=== PATIENT | female | born 1995 | race Asian ===

== ENCOUNTER → 2023-07-28 15:19 | Outpatient (CLI) | payer OTHER, SELFPAY ==
[2023-07-28 17:06] LABS: Hematocrit 38.2 % (36-46); Hemoglobin 12.8 g/dL (12.0-16.0)
[2023-07-28 21:58] LABS: GTT (PREG) 1 Hour PP 50gm Dose 131 mg/dL (76-139)
== END ==
LOC: LAB 15:20
PROVIDERS: PCP Student in an Organized Health Care Education/Training Program; Referring Provider Student in an Organized Health Care Education/Training Program; Visit Provider Student in an Organized Health Care Education/Training Program
DX: Z34.03 Encounter for supervision of normal first pregnancy, third trimester (principal)
CPT/HCPCS: 36415; 82950; 85014; 85018; 86900; 86901

== ENCOUNTER → 2023-07-29 07:21 | Outpatient (CLI) | payer OTHER, SELFPAY ==
--- NOTE | 2023-07-29 07:22 | DI.US.S_ITS ---
PROCEDURE: US OB FOLLOW UP INDICATIONS: EFW 8%ile at 20wks; eval growth OUTSIDE/PRIOR DATING DATA: Last menstrual period (LMP): Unknown. LMP-based estimated date of delivery (ROVERTO): 08/31/2023? First dating scan (date and location): 07/29/2023. Estimated date of delivery (ROVERTO) from first dating scan: 09/07/2023. The calculations are made using the ultrasound ROVERTO of 09/07/2023. TECHNIQUE: Real-time scanning was performed of the fetus, with image documentation and biometric measurements. Endovaginal scanning: Not performed COMPARISON: None. FINDINGS: General: A single living intrauterine gestation is present. Presentation: Vertex. Placenta: Placental position is anterior, without previa. Amniotic fluid index: 18.4 cm, normal range is 5-24 cm. Single deepest vertical pocket is 6.2 cm. heart rate: 140 beats per minute. Maternal cervical canal: 3.5 cm long. Normal lower limit is 2.5 cm. biometrics: Biparietal diameter: 8.5 cm, 34 weeks 3 days Head circumference: 31.1 cm, 34 weeks 6 days Abdominal circumference: 29.9 cm, 33 weeks 6 days Femur length: 6.5 cm, 33 weeks 5 days Clinically estimated gestational age: 34 weeks 2 days Composite gestational age from present scan: 34 weeks 2 days Estimated weight and percentile: 2313 g, 34th percentile No gross abnormality identified. Umbilical artery S/D Doppler: 3.0, 3.3, 2.5. Preserved diastolic flow. IMPRESSION: 1. Farr living intrauterine at 34 weeks 2 days based on today's ultrasound. 2. Normal placenta and amniotic fluid. 3. Umbilical artery Doppler is within normal limits. We strive to produce accurate, complete, and clear reports of imaging services. To assist us in improving patient care, this report was composed using standard report templates and voice recognition software. Therefore, it may contain abnormal punctuation, insertions and/or omissions. Occasional wrong-word or sound-alike substitutions may occur. Though we review the report and make efforts to correct it, we do recommend that the report be read carefully in proper context to recognize any text inaccuracies. Dictated by: Juan Diego Centeno M.D. on 07/29/2023 at 10:19 Approved by: Juan Diego Centeno M.D. on 07/29/2023 at 10:25
== END ==
PROVIDERS: PCP Student in an Organized Health Care Education/Training Program; Referring Provider Student in an Organized Health Care Education/Training Program; Visit Provider Student in an Organized Health Care Education/Training Program
DX: O28.3 Abnormal ultrasonic finding on antenatal screening of mother (principal); Z3A.34 34 weeks gestation of pregnancy
CPT/HCPCS: 76815; 76820

== ENCOUNTER → 2023-08-09 15:39 | Outpatient (CLI) | payer OTHER, SELFPAY ==
[2023-08-10 15:25] LABS: Strep Grp B PCR NEG for Grp B Strep
== END ==
PROVIDERS: PCP Student in an Organized Health Care Education/Training Program; Visit Provider Student in an Organized Health Care Education/Training Program
DX: Z34.03 Encounter for supervision of normal first pregnancy, third trimester (principal); Z3A.35 35 weeks gestation of pregnancy
CPT/HCPCS: 87653

== ENCOUNTER 2023-08-14 02:09 | Outpatient (CLI) | payer OTHER, SELFPAY ==
--- NOTE | 2023-08-14 10:41 | PM.OBTRLD ---
Visit Information Visit Information Date of evaluation: 08/14/23 On-call OB Provider: Rama Salmeron Reason for Evaluation: Yes other Comments/Additional reasons for admission: Pt called stating she hadn't felt movement for 24hrs, despite hydrating, resting, and doing kick counts. [facility] Medical History (Updated 08/14/23 @ 10:44 by Rama Salmeron DO) History of pilonidal cyst Right arm fracture (~2000) Surgical History (Updated 07/25/23 @ 09:41 by Tamra Noguera RN) [place] teeth extracted History of cholecystectomy History of appendectomy History of bilateral breast reduction surgery (~2017) History of orthopedic surgery (~2000) Family History (Updated 07/25/23 @ 09:43 by Tamra Noguera RN) Mother Diabetes mellitus Hypertension Anemia Father Hypertension Grandmother Diabetes mellitus Grandfather No problems noted. Grandfather Bone cancer Heart attack Grandmother Hypertension Social History marital status: number of children: 0 household members: spouse lives independently: Yes caregiver/support person: No housing: other (RV) pets and animals: Yes (two medium sized ) education level: master's degree (Graduating in August) occupational status: student current occupational exposures/hazards: No special jules needs: No travel history: recent (extensive domestic travel) seatbelt use: always helmet use: Yes water heater temp set < 120 deg: Yes working smoke detector in home: Yes fire extinguisher in home: Yes carbon monox detector in home: Yes firearms in home: Yes firearms unloaded and locked: Yes do you feel safe at home: Yes Smoking Status: Former smoker (quit w/ positive test) Tobacco: How many years used: 10 second hand exposure: No alcohol intake: former (sober since 2020) substance use type: does not use during the past year weight has: remained stable (prior to ) well-balanced diet: daily or most days daily servings fruits/ve or more times/day caffeine: Yes (0-1 cup coffee in AM) Type(s) of exercise: walking frequency: daily Evaluation Evaluation Baseline heart rate: 125 Variability: Moderate (11-25) monitor accelerations: Present Monitor Decelerations: Absent Contraction Frequency (minutes): 0 Category of Tracing: Reactive Diagnosis, Plan/Disposition Final Diagnosis (1) Decreased movement: Status: Acute Plan/Disposition Plan: Reactive NST noted in the center. Pt given reassurance, and advised to f/u this week as scheduled. OB Disposition: home
== END 2023-08-14 02:53 | disposition home or self-care (01) ==
LOC: OB 08-15 10:37
PROVIDERS: PCP Student in an Organized Health Care Education/Training Program; Referring Provider Student in an Organized Health Care Education/Training Program; Visit Provider Student in an Organized Health Care Education/Training Program
DX: O36.8190 Decreased fetal movements, unspecified trimester, not applicable or unspecified (principal); Z36.9 Encounter for antenatal screening, unspecified
CPT/HCPCS: 59025; G0378; G0379

== ENCOUNTER 2023-08-26 17:10 | Outpatient (CLI) | payer OTHER, SELFPAY | END 2023-08-26 18:15 | disposition home or self-care (01) | LOC: LABOR 17:16 → OB 08-29 09:30 | PROVIDERS: PCP Student in an Organized Health Care Education/Training Program; Referring Provider Obstetrics & Gynecology; Visit Provider Obstetrics & Gynecology | DX: O42.92 Full-term premature rupture of membranes, unspecified as to length of time between rupture and onset of labor (principal); O47.1 False labor at or after 37 completed weeks of gestation; Z3A.38 38 weeks gestation of pregnancy | CPT/HCPCS: 59025; G0378; G0379 ==

== ENCOUNTER 2023-08-28 05:30 | Inpatient (IN) | payer OTHER, SELFPAY ==
[2023-08-28 07:02] VITALS: BP 151/70
[2023-08-28 07:12] LABS: Add Manual Diff / Slide Review NO; Basophils Absolute Auto 100 /uL (0-100); Basophils Percent Auto 0.4 % (0-2); Eosinophils Absolute Auto 100 /uL (0-450); Eosinophils Percent Auto 0.5 % (2-4); Hemoglobin 13.1 g/dL (12.0-16.0); Lymphocytes Absolute Auto 1600 /uL (1100-4500); Mean Corpuscular HGB Conc 33.7 % (30-36); Mean Corpuscular Volume 98.2 fL (80-100); Monocytes Absolute Auto 1100 /uL (0-900); Monocytes Percent Auto 8.3 % (3-14); Neutrophils Absolute Auto 10400 /uL (1500-7000); Neutrophils Percent Auto 78.8 % (50-75); Platelet Count 150 X10^3/uL (150-400); Red Blood Cell Count 3.97 X10^6/uL (4.0-5.2); Red Cell Distribution Width 13.8 % (11.6-14.8); White Blood Cell Count 13.2 X10^3/uL (4.5-11.0)
[2023-08-28] MEDS: LACTATED RINGERS 1,000 ML 100 ML IV ×2 (07:16→12:53)
[2023-08-28] MEDS: CEFAZOLIN 2 GM/100 ML PREMIX 100 ML IV (07:16)
[2023-08-28 07:18] LABS: Alanine Aminotransferase 12 IU/L (<35); Albumin 3.6 g/dL (3.5-5.0); Albumin Globulin Ratio 1.3 (1.0-2.8); Alkaline Phosphatase 110 U/L (38-126); Aspartate Aminotransferase 18 IU/L (14-36); BUN Creatinine Ratio 14.7 (6-22); Bilirubin Total 0.4 mg/dL (0.2-1.3); Blood Urea Nitrogen 5 mg/dL (7-17); Calcium 9.5 mg/dL (8.4-10.2); Carbon Dioxide 22 mmol/L (22-32); Chloride 107 mmol/L (98-107); Estimated Glomerular Filt Rate > 60 mL/min (>60); Globulin 2.8 g/dL (1.7-4.1); Glucose 81 mg/dL (70-100); HEMOLYSIS < 15 (0-50); Potassium 3.1 mmol/L (3.4-5.1); Sodium 136 mmol/L (137-145); Total Protein 6.4 g/dL (6.3-8.2)
--- NOTE | 2023-08-28 10:16 | PM.AN.REGBLK ---
Regional Block Pre-procedure PMH/ROS narrative: 28 yo 38 weeks GA in term labor requesting epidural for analgesia PSH/Anesthesia history narrative: See chart for details Anxiety o/w healthy ASA Class: II Labs: Hct 39.0 % (36-46) 08/28/23 06:40 Plt Count 150 X10^3/uL (150-400) 08/28/23 06:40 Medications: Current Medications Generic Name Dose Route Start Last Admin Trade Name Freq PRN Reason Stop Dose Admin Calcium Carbonate 1,000 mg 08/28/23 06:25 Calcium Carbonate 500 Mg Tab PO Q4HR PRN Dyspepsia Carboprost Tromethamine 250 mcg 08/28/23 06:24 Carboprost 250 Mcg/Ml Ampul IM Q90M PRN Bleeding Diphenhydramine HCl 25 mg 08/28/23 10:10 Diphenhydramine 50 Mg/Ml Vial IV Q10M PRN Pruritis Ephedrine Sulfate 5 mg 08/28/23 10:10 Ephedrine 50 Mg/Ml Vial IV Q5M PRN Blood pressure decrease more than 20% of baseline. Fentanyl 50 mcg 08/28/23 06:25 Fentanyl 100 Mcg/2 Ml Inj IV Q1H PRN Pain, Moderate (4-6) Lactated Ringer's 1,000 mls @ 100 mls/hr 08/28/23 06:30 08/28/23 07:16 Lactated Ringers IV 100 mls/hr CONT APARNA Administration Oxytocin/Lactated Ringer's 30 unit in 500 mls @ 200 mls/hr 08/28/23 06:24 Oxytocin Premix IV CONT PRN Bleeding Protocol Tranexamic Acid 1,000 mg/ 100 mls @ 200 mls/hr 08/28/23 06:24 Sodium Chloride IV NOW PRN Bleeding Cefazolin Sodium 1 gm/ Sodium 100 mls @ 200 mls/hr 08/28/23 14:45 Chloride IV Q8H APARNA Sodium Chloride 1,000 mls @ 100 mls/hr 08/28/23 10:00 Normal Saline 0.9% IV 08/29/23 09:57 CONT APARNA Sodium Chloride 1,000 mls @ 100 mls/hr 08/28/23 10:15 Normal Saline 0.9% IV 08/29/23 10:10 CONT APARNA FENT 2MCG/ML BUPIV 0.125% EPI 200 mcg in 100 mls @ 6 mls/hr 08/28/23 10:15 Fentanyl/Bupiv/Ns 2mcg/Ml - 0.125% EPIDURAL CONT APARNA Lidocaine HCl 20 ml 08/28/23 06:24 Lidocaine 1% 20 Ml INJ INTRA-OP PRN Post Delivery Methylergonovine Maleate 0.2 mg 08/28/23 06:24 Methylergonovine 0.2 Mg Tablet PO Q6HR PRN Heavy Bleeding Methylergonovine Maleate 0.2 mg 08/28/23 06:24 Methylergonovine 0.2 Mg/Ml Vial IM NOW PRN Bleeding Misoprostol 800 mcg 08/28/23 06:24 Misoprostol [address] NOW PRN Bleeding Misoprostol 400 mcg 08/28/23 06:24 Misoprostol 200 Mcg Tablet SL NOW PRN Bleeding Nalbuphine HCl 5 mg 08/28/23 09:56 Nalbuphine 20 Mg/Ml Ampul IV Q6H PRN Pruritus Nalbuphine HCl 5 mg 08/28/23 10:08 Nalbuphine 20 Mg/Ml Ampul IV Q6H PRN Pruritus Nalbuphine HCl 2.5 mg 08/28/23 10:10 Nalbuphine 20 Mg/Ml Ampul IV Q10M PRN Pruritis Naloxone HCl 0.2 mg 08/28/23 06:24 Naloxone 0.4 Mg/Ml Vial IV Q2MIN PRN Opiate Reversal Naloxone HCl 0.4 mg 08/28/23 09:56 Naloxone 0.4 Mg/Ml Vial IV Q2MIN PRN Opiate Reversal Naloxone HCl 0.1 mg 08/28/23 09:56 Naloxone 0.4 Mg/Ml Vial IV 08/28/23 09:57 NOW ONE Naloxone HCl 0.4 mg 08/28/23 10:08 Naloxone 0.4 Mg/Ml Vial IV Q2MIN PRN Opiate Reversal Naloxone HCl 0.1 mg 08/28/23 10:08 Naloxone 0.4 Mg/Ml Vial IV 08/28/23 10:09 NOW ONE Ondansetron HCl 4 mg 08/28/23 06:25 Ondansetron 4 Mg/2 Ml Inj IV Q4HR PRN Nausea And Vomiting Ondansetron HCl 4 mg 08/28/23 13:00 Ondansetron 4 Mg/2 Ml Inj IV 08/28/23 17:01 Q4HR APARNA Oxytocin 10 unit 08/28/23 06:24 Oxytocin 10 Unit/Ml Vial IM NOW PRN Bleeding Sodium Chloride 10 ml 08/28/23 09:00 Sodium Chloride 0.9% Flush IV BID APARNA Sodium Chloride 10 ml 08/28/23 06:24 Sodium Chloride 0.9% Flush IV PRN PRN Flush Sodium Chloride 10 ml 08/28/23 10:15 Sodium Chloride 0.9% Flush IV BID APARNA Sodium Chloride 10 ml 08/28/23 10:10 Sodium Chloride 0.9% Flush IV PRN PRN Flush Allergies: Allergies Allergy/AdvReac Type Severity Reaction Status Date / Time amoxicillin Allergy Mild Rash Verified 08/23/23 10:22 Procedure Insertion date: 08/28/23 Insertion time: 08:00 Prep/Local: 1% lidocaine (chloroprep) Interspace: L3-4 Needle: 18 gauge Gertrude Loss of resistance with: saline ERICK at (cm): 6 Catheter placed at SKIN (cm): 12 Catheter in SPACE (cm): 6 Insertion: No CSF, No Blood, No Paresthesia with insertion, No Paresthesia with injection and No Test dose reaction Initial Medications TEST DOSE time: 08:02 BOLUS DOSE time: 08:05 BOLUS DOSE (mL): 10 BOLUS DOSE med: 0.125% bupivacaine with fentanyl 10 mcg/mL Infusion Initial rate (mL/hr): 10 Subsequent interventions: 1999 Pt pushing, c/o 10/10 pain. Epidural running 10 ml/hr, BP 134/96. Bolused with 10 ml through pump, rate increased to 12 ml/hr 2019 went to give lido bolus, found epidural disconnected from pump tubing. Wiped with ancohol, reconnected. 10 ml lido 2% w/epi given with good relief. Vacuum extraction with delivery 2035 Post-procedure Anesthesia date START: 08/28/23 Anesthesia time START: 07:55 Anesthesia date END: 08/28/23 Anesthesia time END: 20:36 Post-procedure Anesthesia Assessment: Yes CV function: HR/BP stable, Yes Resp function: RR/sat/airway adequate, Yes Post-op hydration adequate, Yes Pain control adequate, Yes Nausea & vomiting absent, Yes Temperature > 36 C, Yes Mental status appropriate and Yes Anesthesia complications
--- NOTE | 2023-08-28 10:51 | P.HPOB_ITS ---
OB HPI Date/Time Date of admission: 08/28/23 Date Patient Seen: 08/28/23 Time Patient Seen: 10:51 History of Present Condition Chief complaint: IUP, 38+4 wks, SROM, GBS +, PCN Allergic (Rash) : 1 Para: 0 Estimated Date of Delivery: 09/07/23 Estimated Gestational Age (weeks): 38+4 Narrative: Krystyna Borrego is a 27 year old primigravida admitted now at 38+ 4 weeks gestational age following spontaneous rupture membranes earlier this morning demonstrating clear fluid. She has started having prodrome of labor and is in early labor at time of admission. course has been largely uneventful with solid early dating and appropriate milestones throughout. Patient is GBS positive but she is allergic to both penicillin which manifests as a rash and clindamycin. History of Present care: good care Dating criteria: LMP confirmed by 1st trimester US Ultrasounds: normal 1st trimester US and normal mid trimester US Obstetrical complications: other (GBS positive) Preadmission Labs Blood type: O (+) positive -: Antibody screen: negative, GBS status: positive, HBsAG: negative, HIV: negative and RPR/VDLR: negative -: Chlamydia screen: not detected and Gonorrhea screen: not detected -: Rubella: immune and Varicella: immune HCT: 39.0 (Platelets 150k) HCAB: negative PAP: Normal Sequential screen: Negative Quad screen: Normal (AFP testing negative) 1 hr GTT: 131 Prior (ies) History: Primigravida Evaluation Evaluation Baseline heart rate: 15 Variability: Moderate (11-25) monitor accelerations: Present Monitor Decelerations: Absent Uterine Contraction Intensity: Moderate Category of Tracing: Reactive Status: Category l Dilation (cm): 4 Effacement (%): 90 Dilation: 3-4 cm Effacement: >/=80% station: -1 Position of cervix: mid Consistency: soft Mccullough score: 10 Non-invasive Membranes Rupture Test: positive [facility] Medical History (Updated 08/28/23 @ 16:47 by Madelaine Bejarano) History of pilonidal cyst Right arm fracture (~2000) Surgical History (Updated 08/28/23 @ 16:47 by Madelaine Bejarano) Anesthesia [place] teeth extracted History of cholecystectomy History of appendectomy History of bilateral breast reduction surgery (~2017) History of orthopedic surgery (~2000) Family History (Updated 08/28/23 @ 16:48 by Madelaine Bejarano) Mother Diabetes mellitus Hypertension Anemia Father Hypertension Grandmother Diabetes mellitus Grandfather No problems noted. Grandfather Bone cancer Heart attack Grandmother Hypertension Mental health problem Social History marital status: number of children: 0 household members: spouse lives independently: Yes caregiver/support person: No housing: other (RV) pets and animals: Yes (two medium sized ) education level: master's degree (Graduating in August) occupational status: student current occupational exposures/hazards: No special jules needs: No travel history: recent (extensive domestic travel) seatbelt use: always helmet use: Yes water heater temp set < 120 deg: Yes working smoke detector in home: Yes fire extinguisher in home: Yes carbon monox detector in home: Yes firearms in home: Yes firearms unloaded and locked: Yes do you feel safe at home: Yes Smoking Status: Former smoker Tobacco: How many years used: 10 second hand exposure: No alcohol intake: former (sober since 2020) substance use type: does not use during the past year weight has: remained stable (prior to ) well-balanced diet: daily or most days daily servings fruits/ve or more times/day caffeine: Yes (0-1 cup coffee in AM) Type(s) of exercise: walking frequency: daily Meds Home Medications and Allergies Home Medications Medication Instructions Recorded Confirmed Type ferrous sulfate 325 mg (65 mg 325 mg PO DAILY 07/25/23 08/28/23 History iron) tablet (Feosol) pyridoxine (vitamin B6) 50 mg 50 mg PO DAILY 07/25/23 08/28/23 History tablet vit no.95-ferrous 1 tab PO DAILY #90 tabs 08/19/23 08/28/23 Rx fumarate 28 mg-folic acid 800 mcg tablet ( Multivitamins) sertraline 200 mg capsule 200 mg PO DAILY #60 caps 08/19/23 08/28/23 Rx Allergies Allergy/AdvReac Type Severity Reaction Status Date / Time amoxicillin Allergy Mild Rash Verified 08/23/23 10:22 Review of Systems Review of Systems Narrative: Problem-specific ROS positives included in HPI OB Exam Vital signs Blood Pressure: 130/63 Pulse Rate: 78 Temperature: 97.9 F HENMT Head: normal to inspection, normocephalic and atraumatic Eyes General: appearance normal, both eyes and all related structures Resp Effort & Inspection: normal respiratory effort and able to speak in complete sentences Auscultation: clear to auscultation bilaterally Cardio Rate: regular rate Rhythm: regular rhythm Heart Sounds: S1 normal, S2 normal and no murmurs Extremities Lower extremity: Yes normal to inspection GI Inspection: normal to inspection Palpation: Yes soft and Yes no hepatosplenomegaly Uterus Location (Fundal Height): 36 Estimated Weight (lbs): 7 Amniotic Fluid: clear Objective Labs 08/28/23 06:40 08/28/23 06:40 Labs: Laboratory Results - last 24 hr 08/28/23 06:40 WBC 13.2 H RBC 3.97 L Hgb 13.1 Hct 39.0 MCV 98.2 MCH 33.0 MCHC 33.7 RDW 13.8 Plt Count 150 Neut % (Auto) 78.8 H Lymph % (Auto) 12.0 L [place] % (Auto) 8.3 Eos % (Auto) 0.5 L Baso % (Auto) 0.4 Neut # (Auto) 80101 H Lymph # (Auto) 1600 [place] # (Auto) 1100 H Eos # (Auto) 100 Baso # (Auto) 100 Sodium 136 L Potassium 3.1 L Chloride 107 Carbon Dioxide 22 BUN 5 L Creatinine 0.34 L Estimated GFR > 60 BUN/Creatinine Ratio 14.7 Glucose 81 Calcium 9.5 Total Bilirubin 0.4 AST 18 ALT 12 Alkaline Phosphatase 110 Total Protein 6.4 Albumin 3.6 Globulin 2.8 Albumin/Globulin Ratio 1.3 Blood Type O Positive Antibody Screen Negative Assessment and Plan Assessment and Plan Assessment and Plan narrative: ASSESSMENT 1. Intrauterine , 38+ 4 weeks gestational age 2. SROM, clear fluid 3. Latent phase labor 4. GBS negative status PLAN 1. Admit for labor and delivery 2. See admission orders Time Spent with Patient Total time spent with greater than 50% in coordination of care (as documented) at patient's floor/unit and/or counseling patient:: less than 15 minutes
[2023-08-28 11:00] VITALS: BP 130/63; PULSE 78; TEMP 36.6
[2023-08-28] MEDS: OXYTOCIN PREMIX 30 UNIT/500 ML PLAST..BAG IV (12:52)
[2023-08-28] MEDS: diphenhydrAMINE 50 MG/ML VIAL 25 MG IV ×2 (12:52→13:31)
[2023-08-28] MEDS: FENT 2MCG/ML BUPIV 0.125% EPI 200 MCG/100 ML PLAST..BAG 6 MCG EPIDURAL (14:11)
[2023-08-28] MEDS: CEFAZOLIN VIAL 1 GM in SODIUM CHLORIDE 0.9% 100 ML IV (14:46)
--- NOTE | 2023-08-28 17:07 | PM.OBPNLAB ---
Date/Time Date Patient Seen: 08/28/23 Time Patient Seen: 17:08 Pain Control Pain control: tolerating well Pelvic Exam Dilation (cm): 1 Effacement (%): 100 station: +1 Amniotic membrane status: Ruptured Contractions Contractions on admission: irregular Monitor mode: External Pitocin rate (mU/min): 8 Contraction frequency (min): 3 Contraction duration (min): 1 Contraction pattern: Regular Contraction phase: Resting Contraction intensity: Strong/Firm Status status: Category l Heart Rate Baseline: 130 Monitor Accelerations: Present Monitor Decelerations: Early Monitor Variability: Moderate Assessment and Plan Assessment: active labor Plan: continuous present management Comments: Patient pushing reasonably well; CINDY vs. LOP. Anticipate .
[2023-08-28 20:09] LABS: Creatinine Urine Random 20.7 mg/dL; Protein (Total) Urine Random 22 mg/dL (0-12); Protein Creatinine Ratio Urine 1.06 GRAM/24H
--- NOTE | 2023-08-28 21:10 | PM.OBPRVD ---
Events: Other (GBS positive status) Labor & Delivery Delivery date: 08/28/23 Intrapartal Events: Prolonged 2nd Stage > 2.5 hours Cervical ripening method: none Induction method: none Delivery augmentation: pitocin Delivery monitor: external FHT and external uterine Route of delivery: and vacuum extraction Indication for instrumentation: maternal exhaustion Episiotomy description: None L&D Laceration Description: Vaginal - 1st Degree Delivery repair: chromic Estimated blood loss (mL): 200 Quantitative Blood Loss: 200 Anesthesia Type: Epidural Complications: None Narrative: Following a 4 hour, 9 minute 2nd stage complicated by disconnection of the epidural catheter resulting in severe maternal pain with her contractions, the decision was made for vacuum extraction due to extreme maternal exhaustion. Xtreme Power Omni cup vacuum extractor placed at +2 station with the infant in the CLARISSE position. The vertex was brought down to with 3 pulls, no pop offs, and vacuum pressure never exceeding 500 mm of mercury. Patient then pushed the vertex over the intact perineum with a single push. Nuchal cord was reduced after delivery of the and no shoulder dystocia was encountered. Skin to skin contact initiated immediately and delayed cord clamping performed. Once the umbilical cord was doubly clamped and cut, a cord blood sample was obtained for routine studies. The placenta was then delivered with gentle cord traction and suprapubic countertraction. Intravenous Pitocin was initiated immediately with prompt decrease in vaginal bleeding. Placenta was inspected and found to be intact with a three-vessel cord. Inspection of the perineum showed a superficial vaginal laceration in the midline just inside the hymeneal ring. Because of bleeding from the small laceration, 2-0 chromic using running interlocking stitch was used to render the laceration hemostatic. Sponge, instrument, and needle count was correct at the completion of the delivery process which was well tolerated by both mother and baby. Baby 1: gender: Female Presentation: vertex Position: Left Occiput Anterior Placenta delivery description: Spontaneous Cord Vessel Description: 3 Vessels and Nuchal Cord (X1, loose) score (1 min): 6 score (5 min): 8 weight: 6 lb 6.647 oz Plan for aftercare: Routine care
[2023-08-28] MEDS: ACETAMINOPHEN 325 MG TABLET 650 MG PO (23:20)
[2023-08-28] MEDS: IBUPROFEN 600 MG TABLET PO (23:20)
[2023-08-28] MEDS: LANOLIN OINT 7 GM 1 APPLIC TOP (23:21)
[2023-08-29] MEDS: ACETAMINOPHEN 325 MG TABLET 650 MG PO ×3 (05:13→17:29)
[2023-08-29] MEDS: IBUPROFEN 600 MG TABLET PO ×3 (05:13→17:29)
[2023-08-29 06:14] LABS: Add Manual Diff / Slide Review NO; Basophils Absolute Auto 100 /uL (0-100); Basophils Percent Auto 0.6 % (0-2); Eosinophils Absolute Auto 100 /uL (0-450); Eosinophils Percent Auto 0.4 % (2-4); Hematocrit 33.1 % (36-46); Hemoglobin 11.2 g/dL (12.0-16.0); Lymphocytes Absolute Auto 1600 /uL (1100-4500); Lymphocytes Percent Auto 9.4 % (25-40); Mean Corpuscular Hemoglobin 33.3 PG (26-34); Mean Corpuscular Volume 98.1 fL (80-100); Monocytes Absolute Auto 1400 /uL (0-900); Monocytes Percent Auto 8.3 % (3-14); Neutrophils Absolute Auto 13900 /uL (1500-7000); Neutrophils Percent Auto 81.3 % (50-75); Platelet Count 133 X10^3/uL (150-400); Red Blood Cell Count 3.38 X10^6/uL (4.0-5.2); Red Cell Distribution Width 13.6 % (11.6-14.8); White Blood Cell Count 17.2 X10^3/uL (4.5-11.0)
--- NOTE | 2023-08-29 10:00 | PM.OBPN.1 ---
Subjective - OB Subjective Patient comments: no complaints and pain well controlled Monon baby status: doing well Monon feeding status: exclusively breast feeding Narrative: Pt resting, easily awakened Date Patient Seen: 08/29/23 Time Patient Seen: 09:15 Interval history: PPD1 Exam Vital Signs (past 8 hours): BP 122/82 HR 67 RR 16 Tc 97.4 SpO2 96% RA Narrative Exam Narrative: Sleeping, easily awakened Const General: cooperative and healthy appearing Nutritional Appearance: average body habitus HENMT Head: normal to inspection Mouth: moist mucous membranes Chest Chest: normal inspection of the chest Resp Effort & Inspection: normal respiratory effort Cardio Other: scant bilateral pedal edema GI Other: fundus firm << Umb Other: exam deferred Skin General: no rashes or lesions noted Extrem General: normal to inspection Psych Appearance: grossly normal Objective Labs 08/29/23 06:05 08/28/23 06:40 Labs: Laboratory Results - last 24 hr 08/28/23 08/29/23 13:38 06:05 WBC 17.2 H RBC 3.38 L Hgb 11.2 L Hct 33.1 L MCV 98.1 MCH 33.3 MCHC 34.0 RDW 13.6 Plt Count 133 L Neut % (Auto) 81.3 H Lymph % (Auto) 9.4 L [place] % (Auto) 8.3 Eos % (Auto) 0.4 L Baso % (Auto) 0.6 Neut # (Auto) 56062 H Lymph # (Auto) 1600 [place] # (Auto) 1400 H Eos # (Auto) 100 Baso # (Auto) 100 U Random Total Protein 22 H Urine Creatinine 20.7 Protein/Creatinin Ratio 1.06 Assessment & Plan Plan day: 1 plan OB: routine care Comments: 27yo PPD1 s/p VAVD (maternal exhaustion in second stage); doing well fully advanced routine care exclusively, consult PRN PNL as per admission labs, rubella immune, no indication for rhogam GBS+, adequate intrapartum treatment with cefazolin (pt allergic to PCN and Clinda). Noted moderative reactive leukocytosis with AM labs (13k on admission, increasing to 17k this AM). Continue routine maternal assessment as per protocol, pt afebrile without fundal tenderness or concern for occult source of infection at this time h/o maternal mood disorder continue home sertraline high risk PPD, plan on 1-2wk telehealth mood check per discharging provider's preference Dispo: pending clinical course, anticipate dc to home PPD2 Time Spent With Patient Time: Total time spent is greater than 50% in coordination of care (as documented) at patient's floor/unit and/or counseling patient: Time with patient: 15-24 minutes
[2023-08-29] MEDS: DOCUSATE 100 MG CAPSULE PO (11:44)
[2023-08-29] MEDS: SERTRALINE 50 MG TABLET 200 MG PO (11:44)
[2023-08-30] MEDS: ACETAMINOPHEN 325 MG TABLET 650 MG PO ×3 (00:07→14:08)
[2023-08-30] MEDS: IBUPROFEN 600 MG TABLET PO ×3 (00:07→14:09)
--- NOTE | 2023-08-30 07:32 | P.DS_ITS ---
Discharge Providers Provider Date of admission: 08/28/23 05:30 Discharge Date: 08/30/23 Primary care physician: Zuleika Munson MD Consults: 08/28/23 06:24 Consult to Anesthesiology Urgent Comment: Consulting Provider: Shiva Law Reason for consultation: Epidural Has provider been notified: No 08/29/23 21:04 Consult to Coding Compliance Auditor Routine Comment: Discharge provider: Shiva Law MD Summary Hospital Course Date Patient Seen: 08/30/23 Time Patient Seen: 07:34 Diagnoses: Intrauterine gestation, 38+ 3 weeks, delivered by spontaneous vaginal GBS positive status Hospital Course: Krystyna was admitted on the morning of 08/28/2023 after experiencing spontaneous rupture of membranes earlier that day. Patient had epidural placed on the morning of 08/28/2023 and was augmented in labor with Pitocin. On the evening of 08/28/2023 she delivered spontaneously a viable female with Apgars of 6/8, and a weight of 2910 g ( 6 lb 6.6 oz). Following delivery both mother and baby have done extremely well with the mother experiencing prompt return of bowel and bladder function, she is ambulating independently, tolerating regular diet, and her pain is well controlled with oral pain medications. She will be discharged this time in an afebrile normotensive condition after counseling regarding precautionary symptoms, limitations of activity, medications, and plans for follow-up which will be in 6 weeks. Medications at the time of discharge will include resumption of all pre delivery medications as well as ibuprofen 600 mg p.o. q.6 hours as needed for pain, dispense 30 with 2 refills, and oxycodone 5 mg every 6 hours as needed for pain, dispensed 6 with no refills. Peripartum Data Infant Delivery Method: Natural Vaginal Laceration Description: Vaginal - 1st Degree Episiotomy description: None Procedures: Continuous lumbar epidural Spontaneous vaginal delivery with repair of first-degree vaginal laceration complications: none 1: Gender: Female Disposition of : home Status at Discharge Cognitive/behavioral status at discharge: oriented Functional status at discharge: independent ambulation Overall status at discharge: patient is back to baseline Time Spent with Patient Time attestation: Total time spent providing and/or coordinating discharge services: Time spent: Less than 30 minutes Objective Labs 08/29/23 06:05 04/28/24 06:40 Exam Const General: cooperative and comfortable Nutritional Appearance: average body habitus Orientation: alert and oriented x3 HENMT Head: normal to inspection, atraumatic and abrasion Ears: hearing grossly normal bilaterally Face and sinus: face symmetric Eyes General: appearance normal, both eyes and all related structures Conjunctivae: conjunctivae normal Sclera: sclerae normal EOM: EOM intact bilaterally Neck Neck: normal visual inspection Resp Effort & Inspection: normal respiratory effort and able to speak in complete sentences GI Inspection: normal to inspection Palpation: soft and no hepatosplenomegaly External Female Exam: other (No significant bleeding noted) Uterus Location (Fundal Height): 18 Extrem General: no calf tenderness Psych Appearance: grossly normal Mental Status: mental status grossly normal Speech and Movement: speech and movement normal Mood: congruent mood Affect: normal affect Attitude: cooperative Thought Process: normal Thought Content: normal Judgment: judgment good Discharge Plan Discharge Plan Patient Disposition: Home Provider Discharge Comment: Please review the written instructions you received when you were discharged from the hospital. Your follow-up appointment will be scheduled for 6 weeks after your delivery and we look forward to seeing you then. If however in the meanwhile you have any issues, concerns, or questions, please contact our office either by phone at [phone], or via the patient portal. Discharge orders & Medications Prescriptions: New ibuprofen 600 mg Tablet 600 mg PO Q6HR PRN (Reason: Pain, Mild (1-3)) Qty: 30 2RF oxycodone 5 mg Tablet 5 mg PO Q6H PRN (Reason: Pain, Moderate (4-6)) Qty: 6 0RF Continued PNV cmb#95-ferrous fumarate-FA [ Multivitamins] 28 mg iron- 800 mcg tablet 1 tab PO DAILY Qty: 90 0RF sertraline 200 mg capsule 200 mg PO DAILY Qty: 60 1RF pyridoxine (vitamin B6) 50 mg tablet 50 mg PO DAILY ferrous sulfate [Feosol] 325 mg (65 mg iron) tablet 325 mg PO DAILY Follow up/Referrals: Zuleika Munson MD [Primary Care Provider] - Rama Salmeron DO [Physician] - (Tele Health with Dr. Salmeron on 09/20/2023 @ 1630 appointment on at 11:00 AM 6 week post appt on 10/10/2023 @ 1000am) Shiva Law MD [Physician] - Discharge Health Status Multidrug resistant organism: No MDRO Diet/Activity/Treatments Diet: Diet as Tolerated Activity: As tolerated Other treatments: [id number] Tylenol and/or ibuprofen may be used additional pain relief. Jetn-owl-cihbpve stool softeners and/or MiraLax may be as needed constipation Skin/Wound/Dressing Care Report to your healthcare provider any signs of infection, such as:: chills, fever, increased pain, unusual drainage and unusual redness Dressing: N/A Visit Report/Discharge Packet Instructions: DI for Labor and Delivery, Vaginal , DI for and Nipple Soreness Discharge Data Primary Care Provider: Zuleika Munson
[2023-08-30] MEDS: SERTRALINE 50 MG TABLET 200 MG PO (08:12)
[2023-08-30] MEDS: DOCUSATE 100 MG CAPSULE PO (08:12)
[2023-08-30 09:48] VITALS: BP 135/86; PULSE 101; RESP 17; TEMP 36.6
== END 2023-08-30 14:45 | disposition home or self-care (01) | DRG 807 ==
PROVIDERS: Admitting Provider Obstetrics & Gynecology; PCP Student in an Organized Health Care Education/Training Program; Referring Provider Obstetrics & Gynecology; Visit Provider Obstetrics & Gynecology
DX: O99.824 Streptococcus B carrier state complicating childbirth (principal); Z37.0 Single live birth; O63.1 Prolonged second stage (of labor); O70.0 First degree perineal laceration during delivery; O75.81 Maternal exhaustion complicating labor and delivery; Z3A.38 38 weeks gestation of pregnancy; O14.90 Unspecified pre-eclampsia, unspecified trimester
CPT/HCPCS: 36415; 59050; 59410; 80053; 82570; 83615; 84112; 84156; 84550; 85025; 86850; 86900; 86901; G0379; J0690; J1200; J2590

== ENCOUNTER → 2023-09-02 11:50 | Outpatient (CLI) | payer OTHER, SELFPAY ==
[2023-09-02 13:00] LABS: Add Manual Diff / Slide Review NO; Basophils Absolute Auto 0 /uL (0-100); Basophils Percent Auto 0.3 % (0-2); Eosinophils Absolute Auto 300 /uL (0-450); Eosinophils Percent Auto 2.5 % (2-4); Hematocrit 35.7 % (36-46); Hemoglobin 12.2 g/dL (12.0-16.0); Lymphocytes Absolute Auto 1300 /uL (1100-4500); Lymphocytes Percent Auto 11.1 % (25-40); Mean Corpuscular HGB Conc 34.2 % (30-36); Mean Corpuscular Hemoglobin 33.2 PG (26-34); Mean Corpuscular Volume 96.9 fL (80-100); Monocytes Absolute Auto 700 /uL (0-900); Monocytes Percent Auto 5.5 % (3-14); Neutrophils Absolute Auto 9500 /uL (1500-7000); Neutrophils Percent Auto 80.6 % (50-75); Platelet Count 195 X10^3/uL (150-400); Red Blood Cell Count 3.68 X10^6/uL (4.0-5.2); Red Cell Distribution Width 13.5 % (11.6-14.8); White Blood Cell Count 11.8 X10^3/uL (4.5-11.0)
[2023-09-02 13:18] LABS: Alanine Aminotransferase 59 IU/L (<35); Albumin 3.8 g/dL (3.5-5.0); Albumin Globulin Ratio 1.4 (1.0-2.8); Alkaline Phosphatase 132 U/L (38-126); Aspartate Aminotransferase 53 IU/L (14-36); BUN Creatinine Ratio 21.4 (6-22); Bilirubin Total 0.6 mg/dL (0.2-1.3); Blood Urea Nitrogen 9 mg/dL (7-17); Calcium 9.4 mg/dL (8.4-10.2); Carbon Dioxide 30 mmol/L (22-32); Chloride 106 mmol/L (98-107); Estimated Glomerular Filt Rate > 60 mL/min (>60); Globulin 2.8 g/dL (1.7-4.1); Glucose 79 mg/dL (70-100); HEMOLYSIS < 15 (0-50); Lactate Dehydrogenase 405 U/L (120-246); Potassium 3.5 mmol/L (3.4-5.1); Sodium 137 mmol/L (137-145); Total Protein 6.6 g/dL (6.3-8.2); Uric Acid 4.8 mg/dL (2.5-6.2)
[2023-09-02 15:08] LABS: Creatinine Urine Random 30.1 mg/dL; Protein (Total) Urine Random 18 mg/dL (0-12); Protein Creatinine Ratio Urine 0.59 GRAM/24H
== END ==
PROVIDERS: PCP Student in an Organized Health Care Education/Training Program; Referring Provider Family Medicine; Visit Provider Family Medicine
DX: O14.90 Unspecified pre-eclampsia, unspecified trimester (principal)
CPT/HCPCS: 36415; 80053; 82570; 83615; 84156; 84550; 85025

== ENCOUNTER 2023-09-02 18:53 | Inpatient (IN) | payer OTHER, SELFPAY ==
[2023-09-02] VITALS (16 sets, daily range): BP systolic 136–180; BP diastolic 68–111; PULSE 65–76; RESP 26–35; O2SAT 93–97; BMI 30.8
--- NOTE | 2023-09-02 21:54 | PM.HP.1 ---
History of Present Illness History of Present Illness Date Patient Seen: 09/02/23 Time Patient Seen: 21:00 Date of Onset of Symptoms: 09/01/23 Chief complaint: Post Eclampsia Narrative: 27yo PPD5 s/p of LBFI, direct inpatient admission for pre-eclampsia with severe features. Pt had presented earlier this afternoon to outpatient clinic with Dr. Rubin, endorsed at that time MALONE inadequately relieved with tylenol as well as marked increase in BLE edema. BP in office mild range, pt sent to lab for PIH assessment however results did not return until patient had already departed facility. Labs returned significant for elevated LFTs (AST 53, ALT 59), borderline abnormal P/Cr (0.59), remainder wnl. Patient was called by her primary OB (Dr. Salmeron) and instructed to return to facility for direct admission. Center at our facility at capacity and thus planned direct admission to inpatient medicine floor, ICU level of care secondary to IV magnesium gtt. Patient did not present to facility until later this evening (approximately 2100). Patient and spouse met in room, at bedside. Patient noted to be tearful but appropriate. States MALONE is present, generalized without occipital localization. No visual changes or RUQ pain. +3 pitting edema noted to level of knees bilaterally. Initial BP severe range (160s/90s). Patient additional c/o severe L breast engorgement (reason for outpatient visit with earlier today), has been massaging and hand-expressing but recently discovered she was using incorrect size of phlange and has not been able to purchase correct (smaller) size. Denies fever, no erythema of area but very tense and uncomfortable. Lochia minimal, has been taking ibuprofen 600mg scheduled for cramping with adequate relief. Note antepartum course was complicated by inadequate analgesia, high risk depression/ trauma. [facility] Medical History (Updated 09/02/23 @ 22:25 by Luna He MD) Pre-eclampsia, History of pilonidal cyst Right arm fracture (~2000) Surgical History (Updated 08/28/23 @ 16:47 by Madelaine Bejarano) Anesthesia [place] teeth extracted History of cholecystectomy History of appendectomy History of bilateral breast reduction surgery (~2017) History of orthopedic surgery (~2000) Family History (Updated 08/28/23 @ 16:48 by Madelaine Bejarano) Mother Diabetes mellitus Hypertension Anemia Father Hypertension Grandmother Diabetes mellitus Grandfather No problems noted. Grandfather Bone cancer Heart attack Grandmother Hypertension Mental health problem Social History marital status: number of children: 0 household members: spouse lives independently: Yes caregiver/support person: No housing: other (RV) pets and animals: Yes (two medium sized ) education level: master's degree (Graduating in August) occupational status: student current occupational exposures/hazards: No special jules needs: No travel history: recent (extensive domestic travel) seatbelt use: always helmet use: Yes water heater temp set < 120 deg: Yes working smoke detector in home: Yes fire extinguisher in home: Yes carbon monox detector in home: Yes firearms in home: Yes firearms unloaded and locked: Yes do you feel safe at home: Yes Smoking Status: Former smoker Tobacco: How many years used: 10 second hand exposure: No alcohol intake: former substance use type: does not use during the past year weight has: remained stable (prior to ) well-balanced diet: daily or most days daily servings fruits/ve or more times/day caffeine: Yes (0-1 cup coffee in AM) Type(s) of exercise: walking frequency: daily Meds Home Medications and Allergies Home Medications Medication Instructions Recorded Confirmed Type ferrous sulfate 325 mg (65 mg 325 mg PO DAILY 07/25/23 09/02/23 History iron) tablet (Feosol) vit no.95-ferrous 1 tab PO DAILY #90 tabs 08/19/23 09/02/23 Rx fumarate 28 mg-folic acid 800 mcg tablet ( Multivitamins) sertraline 200 mg capsule 200 mg PO DAILY #60 caps 08/19/23 09/02/23 Rx ibuprofen 600 mg tablet 600 mg PO Q6HR PRN Pain, Mild 08/30/23 09/02/23 Rx (1-3) #30 tabs Allergies Allergy/AdvReac Type Severity Reaction Status Date / Time amoxicillin Allergy Mild Rash Verified 08/23/23 10:22 Review of Systems Review of Systems ROS: Yes All systems reviewed with the patient and are negative except as otherwise documented Exam Vital Signs (past 8 hours): BP 161/96 HR 85 Const General: cooperative, comfortable and No acute distress Nutritional Appearance: well nourished Orientation: alert, awake and oriented x3 HENMT Head: normal to inspection Chest Other: gross engorgement of L breast, firm to touch without erythema or warmth Resp Effort & Inspection: normal respiratory effort Other: exam deferred Skin General: no rashes or lesions noted Neuro General: patient alert, patient awake and patient oriented x3 DTR's: Rt Brachioradialis: 2+ and Lt Brachioradialis: 2+ Extrem Other: +3 pitting edema to level of knee bilaterally Psych Appearance: grossly normal and well kempt Mental Status: mental status grossly normal Speech and Movement: speech and movement normal Mood: congruent mood Affect: other (tearful) Attitude: cooperative Thought Content: normal Judgment: judgment good Objective Labs Labs: Hgb 12.2 / Hct 35.7 / WBC 11.8 / Plt 195 Cr 0.42 AST 53 / ALT 59 Pr/Cr 0.69 Assessment & Plan Assessment and plan (1) Pre-eclampsia, : Status: Acute Plan 27yo PPD5 s/p , readmission for further management of pre-eclampsia with severe features preE with severe features start nifedipine 30mg XR start magnesium gtt for seizure ppx, 4g bolus + 2g/hr thereafter x24h strict I/O, pt to void into hat repeat AM CBC, CMP to trend aberrations neuro check q2h per protocol anticipate transfer to center pending bed availability support PRN h/o maternal mood disorder, recent trauma secondary to inadequate analgesia in labor cont home sertraline 200mg PO F: saline lock except for mag gtt secondary to risk of volume overload E: no indication for repletion, assess with AM labs N: general diet DVT ppx: SCDs when in bed Pain mgmt: ibuprofen 600mg PRN Quality VTE Deep Vein Thrombosis/Pulmonary Embolism Present on Admission: No IH PROFEE Charge Codes Initial inpatient/observation care: [id number]
[2023-09-02] MEDS: MAGNESIUM SULFATE 4 GM/100 ML PIGGYBACK IV (22:11)
[2023-09-02] MEDS: NIFEdipine 30 MG TAB ER PO (22:12)
[2023-09-02] MEDS: ONDANSETRON 4 MG/2 ML INJ IV (23:01)
[2023-09-02] MEDS: MAGNESIUM SULFATE 20 GM/500 ML IV.SOLN IV (23:01)
[2023-09-02 23:23] LABS: Add Manual Diff / Slide Review NO; Basophils Absolute Auto 100 /uL (0-100); Basophils Percent Auto 0.5 % (0-2); Eosinophils Absolute Auto 400 /uL (0-450); Eosinophils Percent Auto 3.3 % (2-4); Hematocrit 34.8 % (36-46); Hemoglobin 11.9 g/dL (12.0-16.0); Lymphocytes Absolute Auto 1600 /uL (1100-4500); Mean Corpuscular HGB Conc 34.2 % (30-36); Mean Corpuscular Hemoglobin 33.4 PG (26-34); Mean Corpuscular Volume 97.6 fL (80-100); Monocytes Absolute Auto 800 /uL (0-900); Monocytes Percent Auto 6.5 % (3-14); Neutrophils Absolute Auto 8800 /uL (1500-7000); Neutrophils Percent Auto 75.7 % (50-75); Platelet Count 209 X10^3/uL (150-400); Red Blood Cell Count 3.56 X10^6/uL (4.0-5.2); Red Cell Distribution Width 13.6 % (11.6-14.8); White Blood Cell Count 11.7 X10^3/uL (4.5-11.0)
[2023-09-02 23:24] LABS: MRSA (Nasal) PCR NOT DETECTED (Not Detect)
[2023-09-02 23:28] LABS: Alanine Aminotransferase 50 IU/L (<35); Albumin 3.4 g/dL (3.5-5.0); Albumin Globulin Ratio 1.4 (1.0-2.8); Alkaline Phosphatase 119 U/L (38-126); Aspartate Aminotransferase 43 IU/L (14-36); BUN Creatinine Ratio 31.8 (6-22); Bilirubin Total 0.5 mg/dL (0.2-1.3); Blood Urea Nitrogen 14 mg/dL (7-17); Calcium 9.4 mg/dL (8.4-10.2); Carbon Dioxide 27 mmol/L (22-32); Chloride 109 mmol/L (98-107); Estimated Glomerular Filt Rate > 60 mL/min (>60); Globulin 2.4 g/dL (1.7-4.1); Glucose 86 mg/dL (70-100); HEMOLYSIS 21 (0-50); Potassium 3.5 mmol/L (3.4-5.1); Sodium 138 mmol/L (137-145); Total Protein 5.8 g/dL (6.3-8.2)
[2023-09-03] VITALS (32 sets, daily range): BP systolic 111–150; BP diastolic 66–98; PULSE 94–110; RESP 16–20; TEMP 36.6–37.2; O2SAT 85–98
[2023-09-03] MEDS: IBUPROFEN 600 MG TABLET PO ×4 (00:29→17:59)
[2023-09-03 06:00] LABS: Add Manual Diff / Slide Review NO; Basophils Absolute Auto 100 /uL (0-100); Basophils Percent Auto 0.5 % (0-2); Eosinophils Absolute Auto 400 /uL (0-450); Eosinophils Percent Auto 3.5 % (2-4); Hematocrit 36.9 % (36-46); Hemoglobin 12.7 g/dL (12.0-16.0); Lymphocytes Absolute Auto 1700 /uL (1100-4500); Lymphocytes Percent Auto 14.6 % (25-40); Mean Corpuscular HGB Conc 34.4 % (30-36); Mean Corpuscular Hemoglobin 33.6 PG (26-34); Mean Corpuscular Volume 97.5 fL (80-100); Monocytes Absolute Auto 800 /uL (0-900); Monocytes Percent Auto 6.6 % (3-14); Neutrophils Absolute Auto 8900 /uL (1500-7000); Neutrophils Percent Auto 74.8 % (50-75); Platelet Count 250 X10^3/uL (150-400); Red Blood Cell Count 3.78 X10^6/uL (4.0-5.2); Red Cell Distribution Width 13.5 % (11.6-14.8); White Blood Cell Count 11.9 X10^3/uL (4.5-11.0)
[2023-09-03 06:16] LABS: Alanine Aminotransferase 51 IU/L (<35); Albumin 3.9 g/dL (3.5-5.0); Albumin Globulin Ratio 1.4 (1.0-2.8); Alkaline Phosphatase 143 U/L (38-126); Aspartate Aminotransferase 45 IU/L (14-36); BUN Creatinine Ratio 23.9 (6-22); Bilirubin Total 0.5 mg/dL (0.2-1.3); Blood Urea Nitrogen 11 mg/dL (7-17); Calcium 8.3 mg/dL (8.4-10.2); Carbon Dioxide 27 mmol/L (22-32); Chloride 107 mmol/L (98-107); Estimated Glomerular Filt Rate > 60 mL/min (>60); Globulin 2.7 g/dL (1.7-4.1); Glucose 113 mg/dL (70-100); HEMOLYSIS < 15 (0-50); Potassium 3.1 mmol/L (3.4-5.1); Sodium 139 mmol/L (137-145); Total Protein 6.6 g/dL (6.3-8.2)
[2023-09-03 06:20] LABS: Magnesium 5.1 mg/dL (1.6-2.3)
[2023-09-03] MEDS: POTASSIUM CHLORIDE 20 MEQ TAB 40 MEQ PO ×2 (07:44→12:24)
--- NOTE | 2023-09-03 08:49 | P.PNOB_ITS ---
Subjective - OB Subjective Patient comments: other (somnolent secondary to mag gtt) [place] baby status: doing well [place] feeding status: exclusively breast feeding Date Patient Seen: 09/03/23 Time Patient Seen: 08:00 Interval history: 27yo PPD6 s/p , HD2 re-admission for magnesium gtt and antihypertensive management secondary to pre-eclampsia with severe features. NAEON per RN, robust UOP, all maternal BP within range following administration of single dose nifedipine 30mg XR. This AM patient is somenolent secondary to magnesium infusion, denies MALONE, visual changes, RUQ pain. Has been using bedside commode to void for strict I/O. L breast remains engorged without s/sx of mastitis. Exam Vital Signs (past 8 hours): - 09/03/23 01:00 09/03/23 02:00 09/03/23 02:00 Temperature Pulse Rate Respiratory Rate Blood Pressure 135/80 120/66 Pulse Oximetry Oxygen Delivery Method Room Air 09/03/23 02:06 09/03/23 03:00 09/03/23 03:00 Temperature 98.4 F Pulse Rate 94 H Respiratory Rate 18 Blood Pressure 120/66 123/73 Pulse Oximetry 98 Oxygen Delivery Method 09/03/23 04:00 09/03/23 04:00 09/03/23 06:00 Temperature 98.4 F 98.2 F Pulse Rate 110 H 95 H Respiratory Rate 20 16 Blood Pressure 129/76 129/85 Pulse Oximetry 95 95 Oxygen Delivery Method Room Air 09/03/23 06:00 09/03/23 07:00 Temperature Pulse Rate 96 H Respiratory Rate 16 Blood Pressure 134/78 Pulse Oximetry 98 Oxygen Delivery Method Room Air Oxygen Delivery Method Room Air Narrative Exam Narrative: somnolent secondary to magneisum infusion Const General: comfortable and lethargic Nutritional Appearance: average body habitus Limitations: mental status not altered HENMT Head: normal to inspection Mouth: moist mucous membranes Eyes Other: no periorbital edema noted Chest Breast inspection: abnormal inspection of the breast (tense engorgement of L breast without erythema or fluctuance) Resp Effort & Inspection: normal respiratory effort and no respiratory distress Auscultation: no crackles, no rales, no rhonchi and no wheezes Cardio Pulses: normal peripheral pulses GI Inspection: normal to inspection Other: deferred Skin General: no rashes or lesions noted Neuro General: patient oriented x3 DTR's: Rt Brachioradialis: 2+ and Lt Brachioradialis: 2+ Extrem General: normal to inspection Other: +1 pitting edema extending to mid-calf BLE Objective Labs 09/03/23 04:32 09/03/23 04:32 Labs: Laboratory Results - last 24 hr 09/02/23 09/02/23 09/03/23 20:45 22:10 04:32 WBC 11.7 H 11.9 H RBC 3.56 L 3.78 L Hgb 11.9 L 12.7 Hct 34.8 L 36.9 MCV 97.6 97.5 MCH 33.4 33.6 MCHC 34.2 34.4 RDW 13.6 13.5 Plt Count 209 250 Neut % (Auto) 75.7 H 74.8 Lymph % (Auto) 14.0 L 14.6 L [place] % (Auto) 6.5 6.6 Eos % (Auto) 3.3 3.5 Baso % (Auto) 0.5 0.5 Neut # (Auto) 8800 H 8900 H Lymph # (Auto) 1600 1700 [place] # (Auto) 800 800 Eos # (Auto) 400 400 Baso # (Auto) 100 100 Sodium 138 139 Potassium 3.5 3.1 L Chloride 109 H 107 Carbon Dioxide 27 27 BUN 14 11 Creatinine 0.44 L 0.46 L Estimated GFR > 60 > 60 BUN/Creatinine Ratio 31.8 H 23.9 H Glucose 86 113 H Calcium 9.4 8.3 L Magnesium 2.0 5.1 H* Total Bilirubin 0.5 0.5 AST 43 H 45 H ALT 50 H 51 H Alkaline Phosphatase 119 143 H Total Protein 5.8 L 6.6 Albumin 3.4 L 3.9 Globulin 2.4 2.7 Albumin/Globulin Ratio 1.4 1.4 Nasal Screen MRSA (PCR) Not detected Assessment & Plan Assessment and Plan (1) Pre-eclampsia, : Start date: 09/02/23 Status: Acute Assessment and plan: 27yo PPD6 s/p , HD2 re-admission for magnesium gtt and antihypertensive management secondary to pre-eclampsia with severe features. Plan day: 6 Comments: pre-eclampsia with severe features - maternal BP stable, continue PO nifedipine 30mg XR - robust UOP, decreased peripheral edema on exam this AM - therapeutic mag level noted this AM - continue q2h neuro checks per protocol - plan to dc magnesium gtt at 2100 tonight (09/03/23) - appropriate to transfer to birthing center following completion of magneisum gtt pending retanned leather roller availability - routine care - at bedside - support PRN, continue to monitor for s/sx of mastitis - high risk PPD in setting of trauma, cont home sertraline 200mg, IDT support Dispo: pending clinical course, anticipate dc to home HD3-4 pending continued clinical improvement Time Spent With Patient Time: Total time spent is greater than 50% in coordination of care (as documented) at patient's floor/unit and/or counseling patient: Time with patient: 15-24 minutes
[2023-09-03] MEDS: MAGNESIUM SULFATE 20 GM/500 ML IV.SOLN IV ×2 (09:02→18:30)
[2023-09-03] MEDS: NIFEdipine 30 MG TAB ER PO (09:29)
--- NOTE | 2023-09-03 10:50 | CM.DANOTE ---
DCP Assessment Note Pt is a 27yo female, resident of [place], presents as a direct admission to ICU due to center being on divert status last night. Pt is admitted for post eclampsia. PCP: Sami Lamar Payor: Medicare Reviewed chart and team rounds for pt's medical status and initial discharge needs. BOXER OPERATOR met w/patient at bedside. Present in the room was pt's , Estevan, and , Birdie. Pt was found sitting up in bed, alert and oriented, cooperative with assessment. Pt confirms living arrangement in an RV at the [facility] on [address]. Pt and spouse deny any discharge needs at this time. Plan: Pt to complete Magnesium treatment before tranferring to [facility] for further specialized observation. TIFFANY Negron Discharge Planning/Care Management CM Discharge Assessment Start: 09/03/23 10:47 Freq: Status: Active Protocol: Document 09/03/23 10:47 MW (Rec: 09/03/23 10:50 MW [id number]) Discharge Planning Assessment Assigned Systems Trainer ANNA Almaguer DPOA/Assigned Designee Name Cindy Barreto, Spouse Contact Information [phone] Advance Directives? No History Provided By Patient,Family Member,Medical Record Has Patient been admitted in last 30 No days? Prior Living Arrangements RV Comment Pt and family are residing in an RV Resort on [address]. Household Members spouse,children Type of transporation used prior to Drives own vehicle admit Independent with ADL's Yes Is patient alert and oriented? Yes Caregiver for Another Yes: [place], Birdie Comment Pt was consulting with a nurse at [facility] prior to admission. Barriers to Discharge No Discharge Plan Home Whiteboard Updated in Patient Room with Yes name and ext. # of Systems Trainer Please Provide Date Initial DC 09/03/23 Assessment Was Performed Next Review Type Continued Stay Review
[2023-09-03] MEDS: DOCUSATE 100 MG CAPSULE PO (13:54)
[2023-09-03] MEDS: MAGNESIUM HYDROXIDE 30 ML UDC PO (13:54)
--- NOTE | 2023-09-03 21:33 | PC.NURSE ---
Addendum entered by Sara Riggs R.N. 09/03/23 22:07: Report given to RN. Patient transferred to via in stable condition, baby and with her. All belongings taken with them. Original Note: Mag+ Sulfate infusion stopped at [address]. Patient may be transferred to Center for further monitoring.
[2023-09-04] MEDS: IBUPROFEN 600 MG TABLET PO ×2 (00:29→06:21)
[2023-09-04 02:25] VITALS: BP 131/86; PULSE 86; RESP 16; TEMP 37.3; O2SAT 98
[2023-09-04 06:34] LABS: BUN Creatinine Ratio 21.7 (6-22); Blood Urea Nitrogen 10 mg/dL (7-17); Calcium 7.1 mg/dL (8.4-10.2); Carbon Dioxide 26 mmol/L (22-32); Chloride 106 mmol/L (98-107); Estimated Glomerular Filt Rate > 60 mL/min (>60); Glucose 87 mg/dL (70-100); HEMOLYSIS < 15 (0-50); Potassium 3.7 mmol/L (3.4-5.1); Sodium 136 mmol/L (137-145)
[2023-09-04 06:48] VITALS: BP 126/79; PULSE 75; RESP 14; TEMP 37.2; O2SAT 98
[2023-09-04 07:27] LABS: Alanine Aminotransferase 43 IU/L (<35); Albumin 3.7 g/dL (3.5-5.0); Albumin Globulin Ratio 1.3 (1.0-2.8); Alkaline Phosphatase 119 U/L (38-126); Aspartate Aminotransferase 33 IU/L (14-36); BUN Creatinine Ratio 22.7 (6-22); Bilirubin Total 0.5 mg/dL (0.2-1.3); Blood Urea Nitrogen 10 mg/dL (7-17); Calcium 7.2 mg/dL (8.4-10.2); Carbon Dioxide 26 mmol/L (22-32); Chloride 107 mmol/L (98-107); Estimated Glomerular Filt Rate > 60 mL/min (>60); Globulin 2.8 g/dL (1.7-4.1); Glucose 87 mg/dL (70-100); HEMOLYSIS < 15 (0-50); Potassium 3.8 mmol/L (3.4-5.1); Sodium 137 mmol/L (137-145); Total Protein 6.5 g/dL (6.3-8.2)
--- NOTE | 2023-09-04 08:09 | PM.DS.1 ---
History of Present Illness History of Present Illness Date Patient Seen: 09/04/23 Time Patient Seen: 08:09 Chief complaint: Post Eclampsia Narrative: 27yo PPD6 s/p , HD3 re-admission for magnesium gtt and antihypertensive management secondary to pre-eclampsia with severe features. Magnesium discontinued 2100 yesterday evening at 24h, pt has remained asymptomatic without recurrent aberrant blood pressures on single-agent antihypertensive therapy Discharge Providers Provider Date of admission: 09/02/23 18:53 Discharge Date: 09/04/23 Primary care physician: Zuleika Munson MD Discharge provider: Luna He MD Summary Hospital Course Discharge Diagnosis: pre-eclampsia with severe features Hospital Course: 27yo re-admitted to hospital on PPD5 s/p secondary to new onset elevated BP with MALONE unrelieved by tylenol identified at time of outpatient consult encounter. Patient was sent from office encounter for PIH labs that ultimately resulted abnormal with noted elevations in LFTs (both <100), borderline elevation in P/Cr with remainder wnl. Pt was instructed to present to hospital for direct admission. She was admitted to facility ICU on 09/02/23 for further care and management. On arrival pt had persistent severe range BP (160s/110s) and was initiated on PO nifedipine 30mg XR with immediate and sustained response. She received 24h of magnesium therapy for seizure prophylaxis, tolerating without diffuculty. Noted robust diuresis throughout hospital course with significant interval decrease in peripheral edema. Tense L breast engorgement noted on admission and patient received support throughout stay with improvement on HD2, almost full resolution on HD3. Maternal mood stable throughout. Patient discharged to home on HD3 >12h from completion of magnesium therapy without recurrent abnormal blood pressure. Pt to f/u in office for one week BP check, cont current antihypertensive regimen on discharge. Status at Discharge Cognitive/behavioral status at discharge: oriented Functional status at discharge: independent ambulation Overall status at discharge: patient is back to baseline Time Spent with Patient Time spent: Less than 30 minutes Exam Vital Signs (past 8 hours): - 09/04/23 02:25 09/04/23 06:48 Temperature 99.1 F 98.9 F Pulse Rate 86 75 Respiratory Rate 16 14 Blood Pressure 131/86 126/79 Pulse Oximetry 98 98 Oxygen Delivery Method Room Air Narrative Exam Narrative: Pt resting in bed, , smiling and well appearing Const General: cooperative and comfortable Nutritional Appearance: average body habitus Orientation: alert and awake HENMT Head: normal to inspection Other: prior noted facial plethora/trace periorbital edema resolved Chest Chest: normal inspection of the chest Resp Effort & Inspection: normal respiratory effort GI Inspection: normal to inspection Other: deferred Skin General: no rashes or lesions noted Neuro General: patient alert, patient awake and patient oriented x3 Extrem General: normal to inspection Other: no pitting edema Psych Appearance: grossly normal Mood: congruent mood Affect: normal affect Judgment: judgment good Objective Labs 09/03/23 04:32 09/04/23 06:11 Labs: Laboratory Results - last 24 hr 09/04/23 09/04/23 09/04/23 06:11 06:11 06:11 Sodium 136 L 137 Potassium 3.7 3.8 Chloride 106 Carbon Dioxide BUN Creatinine Estimated GFR BUN/Creatinine Ratio Glucose Calcium Total Bilirubin AST ALT Alkaline Phosphatase Total Protein Albumin Globulin Albumin/Globulin Ratio 09/04/23 09/04/23 09/04/23 06:11 06:11 06:11 Sodium Potassium Chloride 107 Carbon Dioxide 26 26 BUN 10 10 Creatinine 0.46 L Estimated GFR BUN/Creatinine Ratio Glucose Calcium Total Bilirubin AST ALT Alkaline Phosphatase Total Protein Albumin Globulin Albumin/Globulin Ratio 09/04/23 09/04/23 09/04/23 06:11 06:11 06:11 Sodium Potassium Chloride Carbon Dioxide BUN Creatinine 0.44 L Estimated GFR > 60 > 60 BUN/Creatinine Ratio 21.7 22.7 H Glucose 87 Calcium Total Bilirubin AST ALT Alkaline Phosphatase Total Protein Albumin Globulin Albumin/Globulin Ratio 09/04/23 09/04/23 06:11 06:11 Sodium Potassium Chloride Carbon Dioxide BUN Creatinine Estimated GFR BUN/Creatinine Ratio Glucose 87 Calcium 7.1 L 7.2 L Total Bilirubin 0.5 AST 33 ALT 43 H Alkaline Phosphatase 119 Total Protein 6.5 Albumin 3.7 Globulin 2.8 Albumin/Globulin Ratio 1.3 [facility] Medical History (Updated 09/02/23 @ 22:25 by Luna He MD) Pre-eclampsia, History of pilonidal cyst Right arm fracture (~2000) Surgical History (Updated 08/28/23 @ 16:47 by Madelaine Bejarano) Anesthesia Jackson teeth extracted History of cholecystectomy History of appendectomy History of bilateral breast reduction surgery (~2017) History of orthopedic surgery (~2000) Family History (Updated 08/28/23 @ 16:48 by Madelaine Bejarano) Mother Diabetes mellitus Hypertension Anemia Father Hypertension Grandmother Diabetes mellitus Grandfather No problems noted. Grandfather Bone cancer Heart attack Grandmother Hypertension Mental health problem Social History marital status: number of children: 0 household members: spouse and children lives independently: Yes caregiver/support person: No housing: other (RV) pets and animals: Yes (two medium sized ) education level: master's degree (Graduating in August) occupational status: student current occupational exposures/hazards: No special jules needs: No travel history: recent (extensive domestic travel) seatbelt use: always helmet use: Yes water heater temp set < 120 deg: Yes working smoke detector in home: Yes fire extinguisher in home: Yes carbon monox detector in home: Yes firearms in home: Yes firearms unloaded and locked: Yes do you feel safe at home: Yes Smoking Status: Former smoker Tobacco: How many years used: 10 second hand exposure: No alcohol intake: former substance use type: does not use during the past year weight has: remained stable (prior to ) well-balanced diet: daily or most days daily servings fruits/ve or more times/day caffeine: Yes (0-1 cup coffee in AM) Type(s) of exercise: walking frequency: daily Discharge Assessment & Plan Assessment and Plan Assessment: 27yo PPD6 s/p , HD3 re-admission for magnesium gtt and antihypertensive management secondary to pre-eclampsia with severe features. Plan of Treatment: Discharge to home with continuation of inpatient hypertensive regimen (PO nifedipine 30mg XR daily), f/u in office one week BP check Discharge Plan Discharge Plan Patient Disposition: Home Discharge orders & Medications Prescriptions: New nifedipine 30 mg Tablet Extended Release 24hr 30 mg PO DAILY Qty: 30 1RF Continued PNV [id number]-ferrous fumarate-FA [ Multivitamins] 28 mg iron- 800 mcg tablet 1 tab PO DAILY Qty: 90 0RF sertraline 200 mg capsule 200 mg PO DAILY Qty: 60 1RF ferrous sulfate [Feosol] 325 mg (65 mg iron) tablet 325 mg PO DAILY ibuprofen 600 mg Tablet 600 mg PO Q6HR PRN (Reason: Pain, Mild (1-3)) Qty: 30 2RF Follow up/Referrals: Zuleika Munson MD [Primary Care Provider] - Diet/Activity/Treatments Diet: Regular Visit Report/Discharge Packet Stand Alone Forms: Patient Portal/API, Stroke Signs & Symptoms Discharge Data Primary Care Provider: Zuleika Munson Quality VTE Deep Vein Thrombosis/Pulmonary Embolism Present on Admission: No IH PROFEE Charge Codes Discharge inpatient/observation: 48206
[2023-09-04] MEDS: NIFEdipine 30 MG TAB ER PO (08:44)
[2023-09-04] MEDS: DOCUSATE 100 MG CAPSULE PO (08:44)
[2023-09-04 08:51] VITALS: PULSE 86; RESP 16; TEMP 37.1; O2SAT 100
== END 2023-09-04 10:00 | disposition home or self-care (01) | DRG 776 ==
LOC: ICU 09-03 12:47 → LABOR 09-03 21:47
PROVIDERS: Admitting Provider Obstetrics & Gynecology; PCP Student in an Organized Health Care Education/Training Program; Referring Provider Obstetrics & Gynecology; Visit Provider Obstetrics & Gynecology
DX: O14.15 Severe pre-eclampsia, complicating the puerperium (principal)
CPT/HCPCS: 36415; 80048; 80053; 83735; 85025; 87797; J2405; J3475